=== PATIENT | female | born 1990 | race Two or more races ===

== ENCOUNTER 2021-12-10 22:54 | Emergency (ER) | payer MEDICAID, OTHER ==
[~2021-12-10] VITALS: Ht 154.9 cm; Wt 98.0 kg
[2021-12-11 01:15] LABS: Urine Bacteria NONE SEEN /hpf (None Seen); Urine Blood 2+ /uL (Negative); Urine Specific Gravity 1.027 (1.001-1.035); Urine WBC 8 /hpf (0 - 5)
[2021-12-11] MEDS ORDERED: CEPH-322 PO (07:26)
[2021-12-11 08:09] VITALS: BP 147/94
== END 2021-12-11 08:10 | disposition home or self-care (01) ==
LOC: ER 22:54
DX: N39.0 Urinary tract infection, site not specified (principal); M54.50 Low back pain, unspecified
CPT/HCPCS: 81001; 81025